=== PATIENT | female | born 1965 | race Caucasian/White ===

== ENCOUNTER 2016-09-16 07:43 | Emergency (ER) | payer MEDICARE | END 2016-09-16 09:07 | disposition home or self-care (01) | LOC: ER 07:43 | DX: M54.5 Low back pain (principal); M79.652 Pain in left thigh; R11.0 Nausea; E03.9 Hypothyroidism, unspecified; Z90.49 Acquired absence of other specified parts of digestive tract; Z88.5 Allergy status to narcotic agent | CPT/HCPCS: 36415; 73502-LT ==

== ENCOUNTER 2016-10-12 17:07 | Emergency (ER) | payer MEDICARE | END 2016-10-12 17:54 | disposition home or self-care (01) | LOC: ER 17:07 | DX: R21 Rash and other nonspecific skin eruption (principal); R06.02 Shortness of breath; R50.9 Fever, unspecified; M79.672 Pain in left foot; E03.9 Hypothyroidism, unspecified; C95.90 Leukemia, unspecified not having achieved remission; Z90.49 Acquired absence of other specified parts of digestive tract; Z79.899 Other long term (current) drug therapy; Z88.5 Allergy status to narcotic agent ==